=== PATIENT | male | born 1985 | race Caucasian/White ===

== ENCOUNTER 2019-10-14 20:11 | Emergency (ER) | payer OTHER, SELFPAY ==
[2019-10-14 20:36] VITALS: BP 124/58; PULSE 79; RESP 18; TEMP 36.9; O2SAT 99; BMI 20.7
--- NOTE | 2019-10-14 20:41 | DI.RAD.S_ITS ---
PROCEDURE: XR ANKLE RT MIN 3V INDICATIONS: right ankle injury TECHNIQUE: 3 views of the ankle were acquired. COMPARISON: None. FINDINGS: Bones: No fractures or dislocations. Ankle mortise is normally aligned. No suspicious bony lesions. Soft tissues: No tibiotalar joint effusion. Achilles tendon appears normal. IMPRESSION: No trauma found. No trauma found, source of current symptoms is not seen. Dictated by: Paulo Montes M.D. on 10/14/2019 at 21:18 Approved by: Paulo Montes M.D. on 10/14/2019 at 21:18
--- NOTE | 2019-10-14 21:27 | ED_ITS ---
HPI - Extremity Injury (Lower) General Chief Complaint: Extremity Injury, Lower Stated Complaint: rolled right ankle Time Seen by Provider: 10/14/19 21:00 Source: patient Mode of arrival: Family Vehicle Limitations: no limitations History of Present Illness HPI Narrative: 34F smoker without significant medical history presents with the chief complaint of right ankle injury sustained when he rolled a golf cart joey ier in the day. He states he has increased pain with ambulation and improvement with rest. He denies numbness tingling or weakness. MD complaint: ankle injury Onset (ago): hour(s) Injury: Right: ankle Type of Injury: inversion Place: street/outdoors Severity: moderate Relieving factors: rest Exacerbating factors: weight bearing and movement Context: fall Associated symptoms: swelling Other symptoms: none Treatments prior to arrival: cold therapy Related Data Home Medications Medication Instructions Recorded Confirmed No Known Home Medications 10/14/19 10/14/19 Allergies Allergy/AdvReac Type Severity Reaction Status Date / Time No Known Allergies Allergy Uncoded 10/14/19 20:40 Review of Systems Constitutional Constitutional: Denies chills, Denies fatigue, Denies fever(s), Denies frequent falls, Denies lethargy and Denies weakness Eyes Eyes: Denies change in vision, Denies eye discharge, Denies irritation and Denies loss of vision ENT Ears, Nose, Mouth, and Throat: Denies change in voice, Denies dizziness, Denies neck pain, Denies sore throat and Denies throat swelling Cardiovascular Cardiovascular: Denies chest pain, Denies irregular heart rhythm, Denies lightheadedness, Denies palpitations, Denies dyspnea, Denies dyspnea on exertion and Denies orthopnea Respiratory Respiratory: Denies cough, Denies dyspnea, Denies dyspnea on exertion and Denies wheezing Gastrointestinal Gastrointestinal: Denies abdominal pain, Denies change in bowel habits, Denies diarrhea, Denies nausea and Denies vomiting Musculoskeletal Musculoskeletal: Reports arthralgias, Denies neck pain and Denies numbness Integumentary/Breasts Skin/Breast: Denies pruritus, Denies erythema, Denies rash and Denies wounds Neurologic Neurologic: Denies behavioral changes, Denies confusion, Denies dizziness, Denies frequent falls, Denies loss of vision, Denies numbness and Denies weakness Psychiatric Psychiatric: Denies anxiety, Denies behavioral changes, Denies confusion, Denies depression, Denies homicidal ideation and Denies suicidal ideation Endocrine Endocrine: Denies fatigue, Denies flushing and Denies palpitations Hematologic/Lymphatic Hematologic/Lymphatic: Denies easy bruising Allergic/Immunologic Allergic/Immunologic: Denies urticaria, Denies throat swelling and Denies wheezing Patient History Social History Smoking Status: Current every day smoker Smoking Status: Current every day smoker tobacco type: cigarettes alcohol intake frequency: holidays/special occasions only Substance Use Type: marijuana Exam Narrative Exam Narrative: GEN: AOx3 and in mild distress EYES: Pupils are equal, round, and reactive to light and accommodation. Extraoccular muscles are intact bilaterally. There is no subconjunctival hemorrhage or exudate. CHEST: Lungs are clear to auscultation bilaterally and free of wheezes, rales, or rhonchi. Heart rate is regular rhythm, there are no murmurs, clicks, rubs, or gallops. There is no chest wall tenderness. ABD: Abdomen is soft and nontender. There is no guarding or rebound. Bowel sounds are normal in all 4 quadrants. There is no mass or organomegaly. EXT: Full but painful ROM of left ankle without ligamentous instability. Minimal swelling, no obvious deformity. Some pain over lateral malleolus. SKIN: Warm, pink, and dry. No erythema or rash Initial Vital Signs Initial Vital Signs: Vital Signs Temperature 98.4 F 10/14/19 20:36 Pulse Rate 79 10/14/19 20:36 Respiratory Rate 18 10/14/19 20:36 Blood Pressure 124/58 L 10/14/19 20:36 Pulse Oximetry 99 10/14/19 20:36 Course Orders Ordered: ED Orders 10/14/19 20:41 XR ankle RT min 3V Stat Vital Signs Vital signs: Vital Signs - 8 hr 10/14/19 20:36 Temperature 98.4 F Pulse Rate 79 Respiratory Rate 18 Blood Pressure 124/58 L Pulse Oximetry 99 MDM - Extremity Injury (Lower) Imaging Data Extremity x-ray #1: Radiologist's Impression: [address] [address] XRay Report Signed Patient: Chris Olea [facility]#: [id number] : 1985Acct:[id number] Age/Sex: 34 / MDate of Service: 10/14/19 Loc: ED Accession Number: [id number] Procedure: XR ankle RT min 3V Ordering Provider: Nestor Quevedo D.O. PROCEDURE: XR ANKLE RT MIN 3V INDICATIONS: right ankle injury TECHNIQUE: 3 views of the ankle were acquired. COMPARISON: None. FINDINGS: Bones: No fractures or dislocations. Ankle mortise is normally aligned. No suspicious bony lesions. Soft tissues: No tibiotalar joint effusion. Achilles tendon appears normal. IMPRESSION: No trauma found. No trauma found, source of current symptoms is not seen. Dictated by: Paulo Montes M.D. on 10/14/2019 at 21:18 Approved by: Paulo Montes M.D. on 10/14/2019 at 21:18 Discharge Plan Departure Patient Disposition: Home Clinical Impression: Ankle sprain and strain Discharge Date/Time: 10/14/19 22:09 Instructions: DI for Ankle Sprain Activity Restrictions/Additional Instructions: *You have been diagnosed with [ ankle sprain] *What to do: *Take medications as directed: : tylenol or motrin *Follow up with your primary care provider in 2-3 days, call for an appointment. Let them know you were seen in the Emergency Department and that we ask that you be seen in follow up *Return to ER if you should have any new, worsening or concerning symptoms *Weight bearing as tolerated Prescriptions: No Action No Known Home Medications RF: 0
--- NOTE | 2019-10-14 22:08 | PC.NURSE ---
NADEGE wrap applied. Pt showed safe use of crutches.
== END 2019-10-14 22:09 | disposition home or self-care (01) ==
PROVIDERS: Emergency Provider Emergency Medicine
DX: S93.401A Sprain of unspecified ligament of right ankle, initial encounter (principal); S96.911A Strain of unspecified muscle and tendon at ankle and foot level, right foot, initial encounter; X58.XXXA Exposure to other specified factors, initial encounter
CPT/HCPCS: 73610; 99282; 99283

== ENCOUNTER 2020-09-16 10:50 | Emergency (ER) | payer SELFPAY ==
[2020-09-16 11:11] VITALS: BP 126/70; PULSE 70; RESP 14; TEMP 36.4; O2SAT 98
--- NOTE | 2020-09-16 11:15 | DI.RAD.S_ITS ---
PROCEDURE: XR FINGER RT MIN 2V INDICATIONS: table saw vs 3rd digit TECHNIQUE: AP hand, 2 views of the 3rd toe finger(s) acquired. COMPARISON: None. FINDINGS: Bones: No fractures or dislocations. No suspicious bony lesions. Soft tissues: No suspicious soft tissue calcifications. IMPRESSION: Soft tissue injury but no fracture or foreign body is found. Dictated by: Paulo Montes M.D. on 09/16/2020 at 11:46 Approved by: Paulo Montes M.D. on 09/16/2020 at 11:48
--- NOTE | 2020-09-16 15:35 | ED_ITS ---
HPI - Skin/Abscess/Foreign Bdy General Chief complaint: Skin/Abscess/Foreign Body Stated complaint: cut middle finger of left hand today Time Seen by Provider: 09/16/20 14:48 Source: patient Mode of arrival: Ambulatory Limitations: no limitations History of Present Illness HPI narrative: Otherwise healthy 35-year-old gentleman who injured his right middle finger (triage notes indicate left, it is his right) on a table saw this morning. That distal portion, he is neurovascularly intact in bleeding is controlled. He notes that his last tetanus shot was within the last 2 years. He has no other complaints or concerns at this time Related Data Previous Rx's Medication Instructions Recorded cephalexin 500 mg capsule 500 mg PO TID #15 cap 09/16/20 Allergies Allergy/AdvReac Type Severity Reaction Status Date / Time No Known Drug Allergies Allergy Verified 09/16/20 11:15 Review of Systems Review of Systems Narrative: Pertinent positive and negative findings as per HPI Remainder of review of systems is otherwise unremarkable for Constitutional: Fevers, chills, weakness ENT: No sore throat, neck pain, ear pain CV: Chest pain, palpitations, Respiratory: Cough, wheeze, dyspnea GI: Nausea, vomiting, diarrhea, Patient History Social History Smoking Status: Former smoker Smoking Status: Former smoker tobacco type: cigarettes alcohol intake frequency: holidays/special occasions only Substance Use Type: marijuana Exam Narrative Exam Narrative: General: Alert appropriate in no acute distress Respiratory: Able to speak in full sentences, no obvious respiratory distress Skin: No obvious rashes, warm and dry Neurologic: Grossly intact no obvious asymmetries or abnormalities Psych: appropriate insight and affect, cooperative Extremity: Right middle finger with laceration. Initial Vital Signs Initial Vital Signs: Vital Signs Temperature 97.6 F 09/16/20 11:11 Pulse Rate 70 09/16/20 11:11 Respiratory Rate 14 09/16/20 11:11 Blood Pressure 126/70 09/16/20 11:11 Pulse Oximetry 98 09/16/20 11:11 Procedures Laceration Repair Right middle finger: Time of procedure: 16:07 Site: hand Side (If applicable): right Size (cm): 1.5 Description: flap (superficial, medial aspect DIP, no bone or nail bed involvement) Depth: simple, single layer Local Anesthetic: lidocaine 1% and with bicarb Amount of anesthesia used (mL): 4 Pre-repair: wound explored, irrigated extensively and deep structures intact Skin layer closed with: nylon Size (cm): 3-0 Number of sutures: 6 Course Orders Ordered: ED Orders 09/16/20 11:15 XR finger RT min 2V Stat Discontinued Medications Bacitracin (Bacitracin Oint 0.9 Gm Pckt) 1 applic TOP NOW ONE Stop: 09/16/20 15:41 Last Admin: 09/16/20 15:43 Dose: 1 applic Documented by: Lidocaine/Sodium Bicarbonate (Lido 1%/Sod Bicarb 8.4% (10ml) 10 Ml Syringe) 10 ml INJ NOW ONE Stop: 09/16/20 15:41 Last Admin: 09/16/20 15:43 Dose: 10 ml Documented by: Vital Signs Vital signs: Vital Signs - 8 hr 09/16/20 11:11 Temperature 97.6 F Pulse Rate 70 Respiratory Rate 14 Blood Pressure 126/70 Pulse Oximetry 98 MDM - Skin/Abscess/Foreign Bdy Imaging Data X-ray finger: Radiologist's Impression: FINDINGS: Bones: No fractures or dislocations. No suspicious bony lesions. Soft tissues: No suspicious soft tissue calcifications. IMPRESSION: Soft tissue injury but no fracture or foreign body is found. Dictated by: Paulo Montes M.D. on 09/16/2020 at 11:46 MDM Narrative Medical decision making narrative: 35-year-old gentleman who injured his right index finger on a table saw. Neurovascularly intact. No bone nail or nail bed involvement. Flap-like laceration that may end up being mostly biologic bandage but is repaired. Because of the size and location will suggest 5 days of cephalexin for infection prevention. He is up-to-date on tetanus status he is safe for home discharge Discharge Plan Departure Patient Disposition: Home Clinical Impression: Laceration Instructions: DI for Laceration Repair Activity Restrictions/Additional Instructions: Thank you for coming in today This did need to be sutured. It was a flap and some of that may end up falling off but it is acting as a biologic bandage and the wound self will heal faster overall with the stitches. Because of the flap near the tip of your finger I am going to suggest 5 days of cephalexin/Keflex, and antibiotic, to prevent any infection. Using 400 mg of ibuprofen (2 [id number] pills) and 1 Tylenol every 6 hours can be very helpful in controlling pain. Stitches should come out on or about September 23 If you notice increasing redness, drainage, pain or worsening symptoms please re turn to have the wound re-evaluated Prescriptions: New cephalexin 500 mg capsule 500 mg PO TID Qty: 15 RF: 0
[2020-09-16] MEDS: LIDO 1%/SOD BICARB 8.4% (10ML) 10 ML SYRINGE INJ (15:43)
[2020-09-16] MEDS: BACITRACIN OINT 0.9 GM PCKT 1 APPLIC TOP (15:43)
[2020-09-16 16:15] VITALS: BP 123/67; PULSE 62; RESP 16; O2SAT 97
== END 2020-09-16 16:20 | disposition home or self-care (01) ==
PROVIDERS: Emergency Provider Emergency Medicine
DX: S61.210A Laceration without foreign body of right index finger without damage to nail, initial encounter (principal); W29.8XXA Contact with other powered hand tools and household machinery, initial encounter
CPT/HCPCS: 12041; 73140; 99282; 99283